=== PATIENT | male | born 1955 | race Caucasian/White ===

== ENCOUNTER 2018-12-25 10:44 | Observation (INO) ==
[2018-12-25] MEDS ORDERED: Ondansetron 4 MG/2 ML VIAL IVP ONE (10:49)
[2018-12-25] MEDS ORDERED: Aspirin 81 MG TAB.CHEW PO STA (10:49)
[2018-12-25 11:14] LABS: Basophils % 0.9 %; Eosinophils # 0.1 K/mcL (0.0-0.6); Eosinophils % 3.2 %; Hemoglobin 14.3 g/dL (12.9-16.9); Immature Granulocytes % 0.5 % (0-4); Lymphocytes # 0.5 K/mcL (0.6-4.6); Lymphocytes % 11.3 %; Mean Corpuscular Hemoglobin 31.6 pg (28.0-33.3); Mean Corpuscular Volume 92.9 fL (83.0-100.0); Mean Platelet Volume 10.2 fL (9.4-12.4); Monocytes # 0.2 K/mcL (0.0-1.3); Monocytes % 3.9 %; Neutrophils # 3.5 K/mcL (1.6-8.9); Platelet Count 135 K/mcL (140-400); Red Blood Count 4.52 M/mcL (4.19-5.50); Red Cell Distribution Width 14.1 % (11.5-14.5); Segmented Neutrophils % 80.2 %; White Blood Count 4.4 K/mcL (4.3-11.1)
[2018-12-25 11:28] LABS: Alanine Aminotransferase 17 Units/L (7-52); Albumin 4.1 g/dL (3.5-5.7); Albumin/Globulin Ratio 1.2 (1.1-2.2); Alkaline Phosphatase 180 Units/L (34-104); Aspartate Amino Transferase 30 Units/L (13-39); BUN/Creatinine Ratio 16 (6-26); Bilirubin,Total 0.9 mg/dL (0.3-1.0); Blood Urea Nitrogen 20 mg/dL (8-23); Calcium 9.6 mg/dL (8.6-10.3); Carbon Dioxide 25 mEq/L (23-29); Chloride 102 mEq/L (98-107); Globulin 3.3 g/dL (2.4-3.5); Glucose 102 mg/dL (70-105); Osmolality,Calculated 295 (280-300); Potassium 3.5 mEq/L (3.5-5.1); Sodium 141 mEq/L (136-145); Total Protein 7.4 g/dL (6.4-8.9); Troponin I < 0.03 ng/mL (< 0.04); eGFR For African Americans > 60 (> 60); eGFR For Non-African Americans 58 (> 60)
[2018-12-25 12:03] LABS: Magnesium 1.7 mg/dL (1.6-2.6)
[2018-12-25] MEDS ORDERED: Potassium Chloride Elixir 20 MEQ/15 ML UDC PO ONE (13:27)
[2018-12-25] MEDS ORDERED: Naloxone 0.4 MG/ML INJ IVP PRN (13:57)
[2018-12-25] MEDS ORDERED: *HR* HYDROcodone/Acet 5/325 mg TABLET PO PRN (13:57)
[2018-12-25] MEDS ORDERED: *HR* Metoprolol 5 MG/5 ML VIAL IVP PRN (14:00)
[2018-12-25] MEDS ORDERED: Ipratropium/Albuterol Neb 3 ML IH PRN (14:03)
[2018-12-25 14:32] LABS: Prothrombin Time 11.6 Seconds (9.4-12.1)
[2018-12-25 14:35] LABS: Activated Partial Thrombo Time 37.2 Seconds (26.0-36.0)
[2018-12-25] MEDS: *HR* Heparin 5,000 UNIT/ML VIAL SQ SCH (17:52)
[2018-12-25] MEDS: Magnesium Oxide 400 MG TABLET PO SCH (20:20)
[2018-12-25] MEDS: Sacubitril/Valsartan 24/26 MG 1 TABLET PO SCH (20:20)
[2018-12-26 01:59] LABS: Basophils % 0.8 %; Eosinophils # 0.1 K/mcL (0.0-0.6); Eosinophils % 3.5 %; Hematocrit 37.6 % (37.5-50.1); Immature Granulocytes % 0.3 % (0-4); Lymphocytes # 0.8 K/mcL (0.6-4.6); Lymphocytes % 19.9 %; Mean Corpuscular Hemoglobin 31.4 pg (28.0-33.3); Mean Corpuscular Volume 95.2 fL (83.0-100.0); Mean Platelet Volume 10.9 fL (9.4-12.4); Monocytes # 0.4 K/mcL (0.0-1.3); Monocytes % 9.1 %; Neutrophils # 2.6 K/mcL (1.6-8.9); Platelet Count 123 K/mcL (140-400); Red Blood Count 3.95 M/mcL (4.19-5.50); Segmented Neutrophils % 66.4 %
[2018-12-26 02:00] LABS: Hemoglobin 12.4 g/dL (12.9-16.9)
[2018-12-26 02:16] LABS: BUN/Creatinine Ratio 16 (6-26); Blood Urea Nitrogen 22 mg/dL (8-23); Calcium 8.7 mg/dL (8.6-10.3); Carbon Dioxide 28 mEq/L (23-29); Chloride 104 mEq/L (98-107); Glucose 150 mg/dL (70-105); Osmolality,Calculated 292 (280-300); Phosphorous 2.9 mg/dL (2.7-4.5); Potassium 3.8 mEq/L (3.5-5.1); Sodium 138 mEq/L (136-145); eGFR For African Americans > 60 (> 60); eGFR For Non-African Americans 51 (> 60)
[2018-12-26] MEDS: *HR* Heparin 5,000 UNIT/ML VIAL SQ SCH ×2 (05:38→16:35)
[2018-12-26] MEDS: Aspirin Enteric Coated 81 MG Tablet PO SCH (07:50)
[2018-12-26] MEDS: Sacubitril/Valsartan 24/26 MG 1 TABLET PO SCH ×2 (07:50→21:29)
[2018-12-26] MEDS: Magnesium Oxide 400 MG TABLET PO SCH ×2 (07:50→21:28)
[2018-12-26] MEDS ORDERED: Furosemide 20 MG/2 ML VIAL IVP SCH (09:00)
[2018-12-26] MEDS ORDERED: Metoprolol XL (24 HR) Succ 25 MG TAB.ER.24H PO SCH (13:00)
[2018-12-27] MEDS: *HR* Heparin 5,000 UNIT/ML VIAL SQ SCH (05:19)
[2018-12-27 07:01] LABS: Hematocrit 38.2 % (37.5-50.1); Hemoglobin 12.8 g/dL (12.9-16.9); Mean Corpuscular HGB Conc 33.5 g/dL (31.6-35.5); Mean Corpuscular Hemoglobin 31.7 pg (28.0-33.3); Mean Corpuscular Volume 94.6 fL (83.0-100.0); Mean Platelet Volume 10.7 fL (9.4-12.4); Platelet Count 118 K/mcL (140-400); Red Blood Count 4.04 M/mcL (4.19-5.50); White Blood Count 3.5 K/mcL (4.3-11.1)
[2018-12-27 07:23] LABS: BUN/Creatinine Ratio 18 (6-26); Blood Urea Nitrogen 20 mg/dL (8-23); Calcium 8.9 mg/dL (8.6-10.3); Carbon Dioxide 29 mEq/L (23-29); Chloride 102 mEq/L (98-107); Glucose 85 mg/dL (70-105); Osmolality,Calculated 290 (280-300); Potassium 3.9 mEq/L (3.5-5.1); Sodium 139 mEq/L (136-145); eGFR For African Americans > 60 (> 60); eGFR For Non-African Americans > 60 (> 60)
[2018-12-27] MEDS: Sacubitril/Valsartan 24/26 MG 1 TABLET PO SCH (08:06)
[2018-12-27] MEDS: Aspirin Enteric Coated 81 MG Tablet PO SCH (08:07)
[2018-12-27] MEDS: Magnesium Oxide 400 MG TABLET PO SCH (08:07)
[2018-12-27] MEDS ORDERED: Furosemide 20 MG TABLET PO SCH (09:00)
[2018-12-27] MEDS ORDERED: Metoprolol XL (24 HR) Succ 25 MG TAB.ER.24H PO SCH (09:00)
[2018-12-27 12:05] VITALS: BP 109/32
[2018-12-27] MEDS ORDERED: FLU Vac QV 19-20 (6Month+)/PF 0.5 ML SYRINGE IM ONE (13:35)
[2018-12-28] MEDS ORDERED: Metoprolol XL (24 HR) Succ 25 MG TAB.ER.24H PO SCH (09:00)
== END 2018-12-27 14:37 | disposition home or self-care (01) ==
LOC: EMEROOARM 10:44 → 3BNU 10:44 → SUATTDRO 13:47 → 3BNU 14:55
PROVIDERS: ADMIT Internal Medicine; ATTEND Family Medicine